=== PATIENT | female | born 1955 | race Caucasian/White ===

== ENCOUNTER 2016-12-05 16:22 | Observation (INO) | payer OTHER ==
[2016-12-05 16:33] VITALS: BMI 33.2
--- NOTE | 2016-12-05 17:01 | ED PDOC ---
Arrival/HPI - General Chief Complaint: Shortness Of Breath Time Seen by Provider: 12/05/16 16:41 Historian: Patient, Family, Certified Pharmacy Technician - History of Present Illness Narrative History of Present Illness (Text): 12/05/16 16:59 Patient is a 61 yo female past medical history of diabetes presents to ED stating that she has had chest pain and shortness of breath with exertion. Symptoms improve when she is resting. Denies pleuritic pain. Denies leg pain or swelling. Saw her PMD and was referred to licensed tax consultant although has not been able to see licensed tax consultant yet. Denies leg pain or swelling. Denies abdominal pain. Denies bloody urine or stool. No numbness or tingling or weakness. No hemoptysis or cough. No fevers. Past Medical History - Infectious Disease Hx of Infectious Diseases: None - Cardiac Hx Cardiac Disorders: Yes Hx Hypertension: Yes - Pulmonary Hx Respiratory Disorders: No - Neurological Hx Neurological Disorder: No - HEENT Hx HEENT Disorder: No - Renal Hx Renal Disorder: No - Endocrine/Metabolic Hx Endocrine Disorders: Yes Hx Diabetes Mellitus Type 2: Yes - Hematological/Oncological Hx Blood Disorders: Yes Hx Hepatitis C: Yes - Integumentary Hx Dermatological Disorder: No - Musculoskeletal/Rheumatological Hx Musculoskeletal Disorders: No - Gastrointestinal Hx Gastrointestinal Disorders: No - Genitourinary/Gynecological Hx Genitourinary Disorders: No - Psychiatric Hx Anxiety: No Hx Substance Use: No - Past Surgical History Past Surgical History: No Previous - Anesthesia Hx Anesthesia: No - Suicidal Assessment Feels Threatened In Home Enviroment: No Family/Social History Family/Social History: Unknown Family HX Smoking Status: Never Smoked Hx Alcohol Use: No Hx Substance Use: No Allergies/Home Meds Allergies/Adverse Reactions: Allergies No Known Allergies Allergy (Verified 12/05/16 16:43) Home Medications: Home Meds Medication Instructions Recorded Confirmed Metformin Hydrochloride [Metformin] 500 mg PO TID 04/25/13 12/05/16 Metoprolol Tartrate 25 mg PO BID 04/25/13 12/05/16 Simvastatin 20 mg PO HS 04/26/13 12/05/16 Alogliptin Benzoate [Alogliptin] 12.5 mg PO DAILY 12/05/16 12/05/16 Bisacodyl [Correctol] 1 tab PO DAILY 12/05/16 12/05/16 Cholecalciferol [Vitamin D 1000 IU] 1,000 iu PO DAILY 12/05/16 12/05/16 Famotidine [Pepcid] 20 mg PO DAILY 12/05/16 12/05/16 Fenofibrate [Tricor] 54 mg PO DAILY 12/05/16 12/05/16 Review of Systems - Review of Systems Constitutional: Fatigue. absent: Fevers Eyes: absent: Vision Changes ENT: absent: Hearing Changes Respiratory: SOB. absent: Cough Cardiovascular: Chest Pain, AFN. absent: Palpitations, Edema, Calf Pain Gastrointestinal: absent: Abdominal Pain, Nausea, Vomiting Genitourinary Female: Dysuria, Frequency. absent: Hematuria, Urine Output Changes, Vaginal Bleeding, Vaginal Discharge Musculoskeletal: absent: Back Pain Skin: absent: Rash Neurological: absent: Headache, Dizziness, Focal Weakness Hemo/Lymphatic: absent: Easy Bleeding Physical Exam Vital Signs Reviewed: Yes Vital Signs Temp Pulse Resp BP Pulse Ox 12/05/16 18:22 66 18 126/86 99 12/05/16 16:46 18 100 12/05/16 16:32 98.4 F 68 18 128/91 H 99 Temperature: Afebrile Appearance: Positive for: Well-Appearing, Non-Toxic Pain Distress: Mild Mental Status: Positive for: Alert and Oriented X 3 - Systems Exam Head: Present: Atraumatic, Normocephalic Pupils: Present: PERRL Extroacular Muscles: Present: EOMI Mouth: Present: Moist Mucous Membranes Pharnyx: No: ERYTHEMA Nose (Internal): Present: Normal Inspection Neck: Present: Normal Range of Motion. No: Meningeal Signs Respiratory/Chest: Present: Clear to Auscultation. No: Respiratory Distress Cardiovascular: Present: Regular Rate and Rhythm, Murmurs Abdomen: No: Tenderness, Distention Back: No: CVA Tenderness Upper Extremity: No: Cyanosis Lower Extremity: No: Edema, CALF TENDERNESS Neurological: Present: Motor Func Grossly Intact, Normal Sensory Function Skin: Present: Warm Psychiatric: Present: Alert, Normal Insight, Normal Concentration Medical Decision Making ED Course and Treatment: 12/05/16 18:56 Patient presents with daughter who assists with translation. Patient is diabetic with chest pain and sob with exertion for several weeks. On initial exam, no chest pain at rest. Initial EKG and card isos unremarkable. Last stress test "three years ago" and given risk factors with sxs of chest pain with exertion, will admit to telemetry observation, admission accepted by Dr. Crump, her PMD. Currently remains pain free. UTI noted. Patient initiated on abx. No abdominal pain or flank pain noted. Afebrile, nontoxic appearing. Treatment plan d/w patient and family. - Lab Interpretations Lab Results: 12/05/16 16:59 12/05/16 16:59 Lab Results 12/05/16 17:10: Urine Color Yellow, Urine Appearance Sl cloudy, Urine pH 7.0, Ur Specific [place] 1.010, Urine Protein Negative, Urine Glucose (UA) Negative, Urine Ketones Negative, Urine Blood Negative, Urine Nitrate Negative, Urine Bilirubin Negative, Urine Urobilinogen 0.2, Ur Leukocyte Esterase Large H, Urine RBC 0 - 2, Urine WBC 5 - 10, Ur Epithelial Cells 1 - 3, Urine Bacteria Many 12/05/16 17:05: POC Glucose (mg/dL) 113 H 12/05/16 16:59: Sodium 139, Potassium 3.9, Chloride 103, Carbon Dioxide 25, Anion Gap 15, BUN 15, Creatinine 0.6 L, Est GFR ( Amer) > 60, Est GFR ( Non-Af Amer) > 60, Random Glucose 106, Calcium 9.6, Total Bilirubin 0.3, AST 26 , ALT 28, Alkaline Phosphatase 50, Lactate Dehydrogenase 371, Total Creatine Kinase 58, Troponin I < 0.01, NT-Pro-B Natriuret Pep 98.3, Total Protein 7.9, Albumin 4.2, Globulin 3.7, Albumin/Globulin Ratio 1.1 12/05/16 16:59: PT 11.1, INR 1.03, APTT 26.4 12/05/16 16:59: WBC 6.0, RBC 4.85, Hgb 11.7 L, Hct 36.4, MCV 75.1 L, MCH 24.1 L , MCHC 32.1, RDW 14.6 H, Plt Count 269, MPV 8.5, Gran % 41.5 L, Lymph % (Auto) 45.9 H, [place] % (Auto) 9.9 H, Eos % (Auto) 2.2, Baso % (Auto) 0.5, Gran # 2.48, Lymph # 2.7, [place] # 0.6, Eos # 0.1, Baso # 0.03 - RAD Interpretation Radiology Orders: 12/05/16 16:57 CHEST PORTABLE [RAD] Stat - EKG Interpretation EKG Interpretation (Text): EKG at 16:30 normal sinus rhythm rate of 68 cannot rule out anterior infarct age undetermined Interpreted by ED Physician: Yes Type: 12 lead EKG - Medication Orders Current Medication Orders: Discontinued Medications Aspirin (Aspirin Chewable) 81 mg PO STAT STA Stop: 12/05/16 17:51 Last Admin: 12/05/16 18:05 Dose: 81 mg Nitrofurantoin Macrocrystals (Macrobid) 100 mg PO STAT STA Stop: 12/05/16 17:52 Last Admin: 12/05/16 18:04 Dose: 100 mg Disposition/Present on Arrival - Present on Arrival Any Indicators Present on Arrival: No History of DVT/PE: No History of Uncontrolled Diabetes: No Urinary Catheter: No History of Decub. Ulcer: No History Surgical Site Infection Following: None - Disposition Have Diagnosis and Disposition been Completed?: Yes Diagnosis: Chest pain, UTI (urinary tract infection) Disposition: HOSPITALIZED Disposition Time: 17:53 Patient Plan: Observation, Telemetry Patient Problems: Current Active Problems Problem Status Onset Chest pain Acute UTI (urinary tract infection) Acute Condition: FAIR
[2016-12-05 17:20] LABS: BASO # 0.03 K/mm3 (0.0-2.0); BASO % 0.5 % (0.0-3.0); EOS # 0.1 (0.0-0.7); EOS % 2.2 % (1.5-5.0); GRAN # 2.48 (1.4-6.5); GRAN % 41.5 % (50.0-68.0); HEMATOCRIT 36.4 % (36.0-48.0); LYMPH # 2.7 (1.2-3.4); LYMPH % 45.9 % (22.0-35.0); MEAN CELL VOLUME 75.1 fl (80.0-105.0); MEAN CORPUSCULAR HEMOGLOBIN 24.1 pg (25.0-35.0); MEAN CORPUSCULAR HGB CONC 32.1 g/dl (31.0-37.0); MEAN PLATELET VOLUME 8.5 fl (7.0-11.0); MONO # 0.6 (0.1-0.6); MONO % 9.9 % (1.0-6.0); RED CELL DISTRIBUTION WIDTH 14.6 % (11.5-14.5)
[2016-12-05 17:27] LABS: URINE BILIRUBIN NEGATIVE (NEGATIVE); URINE BLOOD NEGATIVE (NEGATIVE); URINE GLUCOSE (UA) NEGATIVE (NEGATIVE); URINE KETONE NEGATIVE (NEGATIVE); URINE LEUKOCYTE ESTERASE LARGE Leu/uL (NEGATIVE); URINE PROTEIN NEGATIVE mg/dL (<30 mg/dL); URINE UROBILINOGEN 0.2 E.U./dL (<1 E.U./dL)
[2016-12-05 17:28] LABS: ALB/GLOB RATIO 1.1 (1.1-1.8); ALKALINE PHOSPHATASE 50 U/L (38-126); ALT/SGPT 28 U/L (7-56); AST/SGOT 26 U/L (14-36); BILIRUBIN,TOTAL 0.3 mg/dL (0.2-1.3); BLOOD UREA NITROGEN 15 mg/dL (7-21); CALCIUM 9.6 mg/dL (8.4-10.5); CARBON DIOXIDE 25 mmol/L (21-33); CHLORIDE 103 mmol/L (98-107); GFR AFRICAN-AMERICAN > 60; GLUCOSE,RANDOM 106 mg/dL (70-110); POTASSIUM 3.9 mmol/L (3.6-5.0); SODIUM 139 mmol/L (132-148); TOTAL PROTEIN 7.9 g/dL (5.8-8.3)
[2016-12-05 17:32] LABS: INR 1.03 (0.93-1.08); PARTIAL THROMBOPLASTIN TIME 26.4 Seconds (23.7-30.8)
[2016-12-05 17:34] LABS: URINE APPEARANCE SL CLOUDY (CLEAR); URINE COLOR YELLOW (YELLOW)
[2016-12-05 17:38] LABS: URINE BACTERIA MANY (NEG); URINE RBC 0 - 2 /hpf (0-2)
[2016-12-05 17:41] LABS: TROPONIN I < 0.01 ng/mL
--- NOTE | 2016-12-05 18:06 | RAD ---
HISTORY: Shortness of breath. Technique: Single view portable semi erect @ 17:45. COMPARISON: 11/12/2015 FINDINGS: LUNGS: No active pulmonary disease. PLEURA: No significant pleural effusion identified, no pneumothorax apparent. CARDIOVASCULAR: No radiographic findings to suggest acute or significant cardiovascular disease. OSSEOUS STRUCTURES: No significant abnormalities. VISUALIZED UPPER ABDOMEN: Normal. OTHER FINDINGS: None. IMPRESSION: No active disease. No significant interval change compared to the prior examination(s). Please note: No preliminary report/ innterpretation of this examination provided by emergency department personnel.
[2016-12-06 07:00] VITALS: O2SAT 100
[2016-12-06 08:27] LABS: CHOLESTEROL 161 mg/dL (130-200)
[2016-12-06] MEDS ORDERED: Aminophylline 25 mg/ml Inj ONE (10:09)
--- NOTE | 2016-12-06 11:05 | CARD ---
APPROVED REPORT EKG Measurement Heart [id number] <Conclusion> Normal sinus rhythm Poor R Progression V1-V3.
--- NOTE | 2016-12-06 12:32 | CT ---
PROCEDURE: CT HEAD WITHOUT CONTRAST. HISTORY: hit head COMPARISON: None available. TECHNIQUE: Axial computed tomography images were obtained through the head/brain without intravenous contrast. Radiation dose: Total exam DLP = 823 mGy-cm. This CT exam was performed using one or more of the following dose reduction techniques: Automated exposure control, adjustment of the mA and/or kV according to patient size, and/or use of iterative reconstruction technique. FINDINGS: HEMORRHAGE: No intracranial hemorrhage. BRAIN: No mass effect or edema. No atrophy or chronic microvascular ischemic changes. VENTRICLES: Unremarkable. No hydrocephalus. CALVARIUM: Unremarkable. PARANASAL SINUSES: Unremarkable as visualized. No significant inflammatory changes. MASTOID AIR CELLS: Unremarkable as visualized. No inflammatory changes. OTHER FINDINGS: None. IMPRESSION: No acute findings
[2016-12-06] MEDS ORDERED: Sodium Chloride 0.9% 500 ML IV STA (13:12)
[2016-12-06 13:14] LABS: BLOOD UREA NITROGEN 14 mg/dL (7-21); CALCIUM 9.3 mg/dL (8.4-10.5); CARBON DIOXIDE 26 mmol/L (21-33); CHLORIDE 105 mmol/L (98-107); GFR AFRICAN-AMERICAN > 60; GLUCOSE,RANDOM 135 mg/dL (70-110); MAGNESIUM 1.7 mg/dL (1.7-2.2); PHOSPHOROUS 3.5 mg/dL (2.5-4.5); POTASSIUM 4.6 mmol/L (3.6-5.0); SODIUM 140 mmol/L (132-148)
[2016-12-06] MEDS ORDERED: cefTRIAXone 1 gm 1 GM/100 ML BAG IVPB SCH (13:15)
[2016-12-06 13:26] LABS: TROPONIN I < 0.01 ng/mL
--- NOTE | 2016-12-06 13:47 | PCM.RRT ---
<Philippe Perez - Last Filed: 12/06/16 13:47> REELER OPERATOR Nurse Assessment - Situation Date: 12/06/16 Time REELER OPERATOR was called: 11:59 REELER OPERATOR Responder Arrival Time: 12:00 REELER OPERATOR Location:: cardiology REELER OPERATOR Reason for Call: Not Responding to Urgent Treatment REELER OPERATOR Called By: Other Disciplines - IV IV Inserted during REELER OPERATOR?: No IV Fluids Initiated During REELER OPERATOR?: 0.9 NS 500cc - Respiratory Oxygen Delivery Method: Room Air - Diagnostic Test Ordered EKG: Yes CT Scan: Yes (head) - Stat Labs Ordered REELER OPERATOR Other Labs Ordered: FSBS-180 CPR started during REELER OPERATOR?: No - Vital Signs Vital Sign: Rapid Response Vital Sign Blood Pressure 102/62 - Finger Stick Blood Glucose Finger Stick Blood Glucose: 180 - Time REELER OPERATOR Ended Time REELER OPERATOR Ended: 12:30 - Vital Signs at end of REELER OPERATOR Vital Signs at end of REELER OPERATOR: Rapid Response End Vital Sign Blood Pressure 114/76 - Recommendations Notifications: Consultations I.Reason for REELER OPERATOR - A) Acute Change in Patient: Subjective: This is a 61 year old female with a past medical history of hypertension and type 2 diabetes who came into the emergency department complaining of chest pain and shortness of breath. The patient was sent for a nuclear stress test as a result. While sitting in the chair the patient became acutely dizzy and fell forward hitting the side of her face and a rapid response was called as a a result. The patients neck was stabilized and I ordered stat EKG, bmp, magnesium phosphorous, and Head CT. The patient was transferred back to the emergency department for further workup. - Respiratory Oxygen Delivery Method: Room Air - Head Head Exam: ATRAUMATIC, NORMAL INSPECTION, NORMOCEPHALIC - Eyes Eye Exam: EOMI, Normal appearance, PERRL. absent: Periorbital tenderness - Respiratory Exam Respiratory Exam: Clear to Ausculation Bilateral, NORMAL BREATHING PATTERN. absent: Chest Wall Tenderness, Prolonged Expiratory Phase, Respiratory Distress - Cardiovascular Exam Cardiovascular Exam: REGULAR RHYTHM, RRR, +S1, +S2. absent: Gallop, Rubs - GI/Abdominal Exam GI & Abdominal Exam: Soft, Normal Bowel Sounds. absent: Rigid, Tenderness, Hyperactive Bowel Sounds - Neurological Exam Neurological Exam: Alert, Awake, CN II-XII Intact, Normal Gait, Oriented x3 - Extremities Exam Extremities Exam: Full ROM, Normal Capillary Refill, Normal Inspection. absent : Calf Tenderness, Joint Swelling, Pedal Edema, Tenderness Plan - Assessment of Findings&Treatment Plan F/u on head CT, EKG, magnesium, phosphorous, cardiac enzymes and BMP. Dr. Crump the PMD was made aware of the incident via voicemail. Dr. Lee the Wireless Retail Manager was made aware of the incident. 500 ml Fluid bolus was given. Blood pressure stable. No tachycardia or bradycardia present. <Verna Maciel - Last Filed: 12/07/16 16:37> REELER OPERATOR Nurse Assessment - Vital Signs Vital Sign: Rapid Response Vital Sign Blood Pressure 102/62 - Vital Signs at end of REELER OPERATOR Vital Signs at end of REELER OPERATOR: Rapid Response End Vital Sign Blood Pressure 114/76 Attending/Attestation - Attestation I have personally seen and examined this patient.: Yes I have fully participated in the care of the patient.: Yes I have reviewed all pertinent clinical information, including history, physical exam and plan: Yes
--- NOTE | 2016-12-06 16:12 | HP ---
DATE: 12/05/2016. REASON FOR ADMISSION: The patient is a 61-year-old female, came into the hospital because of chest discomfort and dyspnea with exertion. HISTORY OF PRESENT ILLNESS: This is a 61-year-old female with chronic hep C, treated recently; diabetic, on pills. She has been complaining of chest discomfort that seems to be getting worse over the last few days associated with right-sided chest pain, it happen only with exertion. The patient got to the hospital with above complaint and seems like getting more frequent and more persistent. She denies any nausea, vomiting, any palpitations or any dizziness. PAST MEDICAL HISTORY: As I mentioned, chronic hep C, treated recently; hypercholesterolemia; hypertriglyceridemia and obesity. ALLERGIES: SHE HAS NO KNOWN ALLERGIES. SOCIAL HISTORY: Does not smoke or drink. She lives by herself, have kids supports to her. FAMILY HISTORY: Noncontributory. REVIEW OF SYSTEMS: She does complaint of dyspnea, which recently worse, arthritis of both knees, back pain, chronic disc disease, otherwise stable. PHYSICAL EXAMINATION: GENERAL: The patient is alert, awake and oriented x3. No distress VITAL SIGNS: As follows: Temperature 98.3, heart rate 70, blood pressure 129/64, respirations 20, and sat 100%. HEAD AND NECK: Normal. No JVD. No thyromegaly. CHEST: Clear with good air entry. CARDIAC: First sound and second sound normal. ABDOMEN: Soft, obese and nontender. EXTREMITIES: No edema. NEUROLOGIC: Normal. LABORATORY DATA: White count 6, hemoglobin 11.7, hematocrit 36.4, and platelets 269. Sodium 139, potassium 3.9, chloride 103, bicarbonate 25, BUN 15, creatinine 0.6. Liver function test is normal. Troponin is negative and albumin and globulin normal. Triglycerides 125, LDL 98, that was done. EKG AND CHEST X-RAY: Chest x-ray shows no active pulmonary disease, and EKG was reported no significant ST elevation. IMPRESSION AND PLAN: A 61-year-old diabetic female came in with chest discomfort, it is more with exertions. We admitted the patient for angina equivalent, coronary artery disease. She should be evaluated with cardiology for cardiac angina equivalent. We admitted the patient with chest pain, cardiology consult, Dr. Lee. Resume her meds. I will give her an aspirin if she is going to get, and we will get her alogliptin. Diabetes and hypertriglyceridemia. We will resume all her meds. Continue current treatment. Resume beta cale, metoprolol 25 mg b.i.d. and simvastatin 20 at bedtime. Caden Crump MD
[2016-12-06 18:14] VITALS: BP 116/65; RESP 20; TEMP 97.5
--- NOTE | 2016-12-06 18:20 | CARD ---
APPROVED REPORT Protocol: LEXISCAN Test Type: Lexiscan Sestamibi Stress Test Attending Physician: Dr. Clarence Vincent Referring Physician: Dr. Caden Crump Test Indications: Chest Pain Height:5 ft 0 in Weight:170lbs Medications: aspirin, macrobid Medical History: 61 year old female with a h/o diabetes and Hep-C Target HR: 159 bpm Resting ECG: RSR. Resting Heart Rate: 69 bpm Resting Blood Pressure: 128/70mmHg Submaximum (85%): 135 bpm PROCEDURE Pharmacologic stress testing was performed using 0.4mg per 5ml of regadenoson given intravenously over 7-10 seconds. POST EXERCISE Reason for Termination: Protocol completed Target HR: No Max HR: 80 bpm 75% of Maximum Predicted HR: 159 bpm Exercise duration: 05:08 min:sec, 0 Stage Exercise capacity: 1.0METs Max Blood Pressure: 136/82mmHg Blood Pressure response to exercise: normal resting BP - appropriate response Heart Rate response to exercise: appropriate Chest Pain: No, none Angina index: 0 Arrhythmia: No, none ST Change: Yes, Less than 1mm Upsloping type ST Segment Depression 2, 3,avf,v Deviation: 0 mm TEST SUMMARY [id number]/70.0. INFUSIONDOSE 101:000.00.01.0117/.0. INFUSIONDOSE 201:000.00.01.0100/.0. INFUSIONDOSE 301:[id number]/82.0. INFUSIONDOSE 401:000.00.01.083/.0. INFUSIONDOSE 501:000.00.01.078/.0. INFUSIONDOSE 600:070.00.01.080/.0. INTERPRETATION Stress EKG Conclusion: IV LEXISCAN NUCLEAR STRESS TEST NEGATIVE FOR CHEST PAIN AND NEGATIVE FOR ANY SIGNIFICANT ST-T CHANGES. NUCLEAR SCAN REPORT PENDING Signed by Clarence Vincent Electronically Approved: 12/06/2016 10:54:12 EXAM: Myocardial Perfusion REST/STRESS Stress Test Type: Pharmacologic Imaging Protocol Rest Spect myocardial perfusion imaging was performed in supine position 60 minutes following the injection of 10.3 mCi of Tc-99 Myoview. At peak stress, the patient was injected intravenously with 30.8mCi of Tc-99 tetrofosmin after an infusion time of 0 minutes and 10 seconds. Gated Stress Spect was performed 65 minutes after intravenous Tc-99 Myoview injection. The images were gated to evaluate regional wall motion and calculate ventricular ejection fraction.Images were reconstructed using backfilter projection method in short horizontal and verticle long axis. Spect slices were generated. LV Perfusion The quality of the study is good. The left ventricle is normal in size. The right ventricle is unremarkable. The lung uptake is normal. The distribution of tracer reveals mildly and diffusely decreased perfusion involving anterior wall on the stress study. The remainder of the LV myocardium is unremarkable. The rest myocardial perfusion study shows no significant change. Wall Motion Wall motion study shows good contractility of the left ventricle. LVEF = 65%. Conclusion 1. Essentially normal SPECT myocardial perfusion study. 2. Fixed, anterior defect is most likely due to breast attenuation. 3. Normal gated wall motion of the left ventricle.
[2016-12-06 18:51] VITALS: PULSE 71
--- NOTE | 2016-12-06 19:10 | CARD ---
APPROVED REPORT EKG Measurement Heart [id number] [place] 166P58 [id number] <Conclusion> Normal sinus rhythm Normal ECG
--- NOTE | 2016-12-07 08:12 | CON ---
REASON FOR CONSULTATION: Follow up shortness of breath, rule out underlying coronary artery disease. HISTORY OF PRESENT ILLNESS: Briefly, this is a 61-year-old female with a past medical history of type 2 diabetes, hypertension, hyperlipidemia, came in with complaint of dyspnea on exertion. Denies any definite chest pain, but feels walk can get heaviness in the chest. Denies any history of documented coronary artery disease or angina in the past. Denies any PND or orthopnea. PAST MEDICAL HISTORY: Significant for diabetes and hypertension. SOCIAL HISTORY: Denies smoking. Denies any history of alcohol abuse. FAMILY HISTORY: Noncontributory. CURRENT MEDICATIONS: At home, the patient on simvastatin 20 mg, metoprolol 25 mg, metformin 500 mg, Tricor 54 mg, Pepcid 20 mg, vitamin D and alogliptin benzoate 12.5 mg b.i.d. PREVIOUS CARDIAC WORKUP: The patient had echocardiography done on 05/05/2013 that showed normal chamber size and function; trace aortic insufficiency, dated 05/05/2013. The patient had a stress test on 05/05/2013 that showed normal myocardial perfusion study. Ejection fraction 64%. REVIEW OF SYSTEMS: As per HPI. PHYSICAL EXAMINATION: As follows: VITAL SIGNS: Temperature afebrile, heart rate 69 and blood pressure 139/59. HEENT: PERRLA, intact. NECK: Supple. No carotid bruits and thyromegaly. CHEST: Clear to auscultation. HEART: S1 and S2, regular. ABDOMEN: Soft. EXTREMITIES: Clubbing and cyanosis negative. LABORATORY DATA: Blood workup as follows: WBC 6.0, hemoglobin , hematocrit 36.4 and platelet count 269. Chemistry showed sodium 139, potassium 3.9, chloride 103, carbon dioxide 25, anion gap of 15, BUN of 15 and creatinine 0.9. Troponin 0.01. EKG showed normal sinus, no acute ST-T changes noted. IMPRESSION: Dyspnea on exertion; some questionable history of chest pain on exertion, rule out underlying coronary artery disease; multiple risk factors for coronary artery disease including diabetes and hypertension, suggest echo and a stress test with lipid profile, TSH and hemoglobin A1c. Further recommendation after noninvasive workup. Thank you Dr. Crump for providing us the opportunity in taking care of the patient. We will follow with you. Clarence Lee MD
--- NOTE | 2016-12-07 14:59 | CARD ---
APPROVED REPORT EXAM: Two-dimensional and M-mode echocardiogram with Doppler and color Doppler. INDICATION Chest Pain 2D DIMENSIONS Left Atrium (2D)3.6 (1.6-4.0cm)IVSd0.7 (0.7-1.1cm) LVDd4.5 (3.9-5.9cm)PWd0.9 (0.7-1.1cm) LVDs3.0 (2.5-4.0cm)FS (%) 32.7 % LVEF (%)61.2 (>50%) M-Mode DIMENSIONS Aortic Root3.10 (2.2-3.7cm)Aortic Cusp Exc.1.70 (1.5-2.0cm) Aortic Valve AoV Peak Rbkzcjum329.0cm/Ashley Peak GR.8mmHg Mitral Valve MV E Loyhinlo79.0cm/sMV A Viyhzefv27.6cm/sE/A ratio1.1 TDI Lateral E' Peak V9.26cm/sMedial E' Peak V6.04cm/sE/Lateral E'8.1 E/Medial E'12.4 Pulmonary Valve PV Peak Okjqtbem73.7cm/sPV Peak Grad.2mmHg Tricuspid Valve TR Peak Cdjxiymp261cj/sRAP [id number] Peak Gr.27mmHg [id number] LEFT VENTRICLE The left ventricle is normal size. There is normal left ventricular wall thickness. The left ventricular function is normal.EF-55-60% There is normal LV segmental wall motion. The left ventricular diastolic function is normal. No left ventricle thrombus noted on this study. There is no ventricular septal defect visualized. There is no left ventricular aneurysm. There is no mass noted in the left ventricle. RIGHT VENTRICLE The right ventricle is normal size. There is normal right ventricular wall thickness. The right ventricular systolic function is normal. ATRIA The left atrium size is normal. The right atrium size is normal. The interatrial septum is intact with no evidence for an atrial septal defect. AORTIC VALVE The aortic valve is thickened but opens well. No aortic regurgitation is present. There is no aortic valvular stenosis. There is no aortic valvular vegetation. MITRAL VALVE The mitral valve is thickened but opens well. Mitral regurgitation is trace. There is no mitral valve stenosis. There is no evidence of mitral valve prolapse. TRICUSPID VALVE The tricuspid valve leaflets are thickened , but open well. There is trace tricuspid regurgitation.[id number]_37 mmof hg. There is no tricuspid valve stenosis. There is no tricuspid valve prolapse or vegetation. PULMONIC VALVE The pulmonary valve is normal in structure. GREAT VESSELS The aortic root is normal in size. The ascending aorta is normal in size. The pulmonary artery is normal. The IVC is normal in size and collapses >50% with inspiration. PERICARDIAL EFFUSION There is no pleural effusion. There is no pericardial effusion. <Conclusion> The left ventricle is normal size. There is normal left ventricular wall thickness. The left ventricular function is normal.EF-55-60% Mitral regurgitation is trace. There is trace tricuspid regurgitation.[id number]_37 mmof hg. The IVC is normal in size and collapses >50% with inspiration. There is no pericardial effusion. no vegetation or thrombus noted.
== END 2016-12-06 18:56 | disposition home or self-care (01) ==
LOC: ED 16:22 → ERH 17:50 → 2RNO 20:50
PROVIDERS: ADMIT Internal Medicine; ATTEND Internal Medicine
DX: R07.9 Chest pain, unspecified (principal); N39.0 Urinary tract infection, site not specified; I10 Essential (primary) hypertension; E11.9 Type 2 diabetes mellitus without complications; B18.2 Chronic viral hepatitis C; E78.2 Mixed hyperlipidemia; E66.9 Obesity, unspecified; Z68.34 Body mass index [BMI] 34.0-34.9, adult; Z79.84 Long term (current) use of oral hypoglycemic drugs
CPT/HCPCS: 36415; 70450; 71010; 78452; 80048; 80053; 80061; 81001; 82550; 82948; 83036; 83615; 83735; 83880; 84100; 84443; 84484; 85025; 85610; 85730; 87086; 93005; 93017; 93306; 99285; A9502; G0378; J0696

== ENCOUNTER 2016-12-13 18:14 | Emergency (ER) | payer OTHER ==
[2016-12-13 18:18] VITALS: BMI 31.3
[2016-12-13 18:47] VITALS: TEMP 97.8; O2SAT 99
[2016-12-13 18:52] LABS: BASO # 0.02 K/mm3 (0.0-2.0); BASO % 0.4 % (0.0-3.0); EOS # 0.2 (0.0-0.7); GRAN # 2.04 (1.4-6.5); GRAN % 36.1 % (50.0-68.0); LYMPH # 2.9 (1.2-3.4); LYMPH % 50.6 % (22.0-35.0); MEAN CELL VOLUME 74.6 fl (80.0-105.0); MEAN CORPUSCULAR HEMOGLOBIN 24.1 pg (25.0-35.0); MEAN CORPUSCULAR HGB CONC 32.3 g/dl (31.0-37.0); MEAN PLATELET VOLUME 8.2 fl (7.0-11.0); MONO # 0.6 (0.1-0.6); MONO % 9.9 % (1.0-6.0); RED CELL DISTRIBUTION WIDTH 14.4 % (11.5-14.5); WHITE BLOOD COUNT 5.7 10^3/ul (4.5-11.0)
[2016-12-13 19:02] LABS: INR 1.13 (0.93-1.08); PARTIAL THROMBOPLASTIN TIME 30.7 Seconds (25.1-36.5)
[2016-12-13 19:10] LABS: ALB/GLOB RATIO 1.2 (1.1-1.8); ALKALINE PHOSPHATASE 57 U/L (38-126); ALT/SGPT 34 U/L (7-56); AST/SGOT 30 U/L (14-36); BILIRUBIN,TOTAL 0.4 mg/dL (0.2-1.3); BLOOD UREA NITROGEN 16 mg/dL (7-21); CALCIUM 9.8 mg/dL (8.4-10.5); CARBON DIOXIDE 27 mmol/L (21-33); CHLORIDE 102 mmol/L (98-107); GFR AFRICAN-AMERICAN > 60; GLUCOSE,RANDOM 106 mg/dL (70-110); POTASSIUM 4.2 mmol/L (3.6-5.0); SODIUM 141 mmol/L (132-148); TOTAL PROTEIN 8.6 g/dL (5.8-8.3)
[2016-12-13 19:22] LABS: TROPONIN I < 0.01 ng/mL
[2016-12-13] MEDS ORDERED: Iohexol 350 MG/100 ML VIAL ONE (19:31)
--- NOTE | 2016-12-13 20:32 | ED PDOC ---
Arrival/HPI - General Chief Complaint: Shortness Of Breath Time Seen by Provider: 12/13/16 18:17 Historian: Patient - History of Present Illness Narrative History of Present Illness (Text): 12/13/16 20:22 61yo female with PMHx of Diabetes 2, hypertension and hypercholestremia who present with complaint of dyspnea and chest pain x months. She was seen here a week ago for same complain t. States she saw Doctor Theron today and was referred to ED for dyspnea evaluation. she denies cough, hemoptysis, LE edema, orthopnea, fever, chills, any other complaint. Past Medical History - Provider Review Nursing Documentation Reviewed: Yes - Infectious Disease Hx of Infectious Diseases: None - Cardiac Hx Cardiac Disorders: Yes Hx Hypertension: Yes - Pulmonary Hx Respiratory Disorders: No - Neurological Hx Neurological Disorder: No - HEENT Hx HEENT Disorder: No - Renal Hx Renal Disorder: No - Endocrine/Metabolic Hx Endocrine Disorders: Yes Hx Diabetes Mellitus Type 2: Yes - Hematological/Oncological Hx Blood Disorders: Yes Hx Hepatitis C: Yes - Integumentary Hx Dermatological Disorder: No - Musculoskeletal/Rheumatological Hx Musculoskeletal Disorders: No Hx Falls: No - Gastrointestinal Hx Gastrointestinal Disorders: No - Genitourinary/Gynecological Hx Genitourinary Disorders: No - Psychiatric Hx Psychophysiologic Disorder: No Hx Substance Use: No - Past Surgical History Past Surgical History: No Previous - Anesthesia Hx Anesthesia: No - Suicidal Assessment Feels Threatened In Home Enviroment: No Family/Social History - Physician Review Nursing Documentation Reviewed: Yes Family/Social History: Unknown Family HX Smoking Status: Never Smoked Hx Alcohol Use: No Hx Substance Use: No Allergies/Home Meds Allergies/Adverse Reactions: Allergies No Known Allergies Allergy (Verified 12/13/16 18:36) Home Medications: Home Meds Medication Instructions Recorded Confirmed Simvastatin 20 mg PO HS 04/26/13 12/13/16 Alogliptin Benzoate [Alogliptin] 12.5 mg PO DAILY 12/05/16 12/13/16 Bisacodyl [Correctol] 1 tab PO DAILY 12/05/16 12/13/16 Cholecalciferol [Vitamin D 1000 IU] 1,000 iu PO DAILY 12/05/16 12/13/16 Famotidine [Pepcid] 20 mg PO DAILY 12/05/16 12/13/16 Fenofibrate [Tricor] 54 mg PO DAILY 12/05/16 12/13/16 Metformin HCl [Glucophage] 500 mg PO TID 12/13/16 12/13/16 Metoprolol Tartrate 25 mg PO BID 12/13/16 12/13/16 Review of Systems - Physician Review All systems were reviewed & negative as marked: Yes - Review of Systems Constitutional: Normal Eyes: Normal ENT: Normal Respiratory: SOB Cardiovascular: Chest Pain Gastrointestinal: Normal Genitourinary Female: Normal Musculoskeletal: Normal Skin: Normal Neurological: Normal Endocrine: Normal Hemo/Lymphatic: Normal Psychiatric: Normal Physical Exam Vital Signs Reviewed: Yes Vital Signs Temp Pulse Resp BP Pulse Ox 12/13/16 20:42 88 18 126/71 99 12/13/16 18:36 19 99 12/13/16 18:31 97.8 F 95 H 19 111/82 99 Temperature: Afebrile Blood Pressure: Normal Pulse: Regular Respiratory Rate: Normal Appearance: Positive for: Well-Appearing, Non-Toxic, Comfortable Pain Distress: None Mental Status: Positive for: Alert and Oriented X 3 - Systems Exam Head: Present: Atraumatic, Normocephalic Pupils: Present: PERRL Extroacular Muscles: Present: EOMI Conjunctiva: Present: Normal Mouth: Present: Moist Mucous Membranes Neck: Present: Normal Range of Motion Respiratory/Chest: Present: Clear to Auscultation, Good Air Exchange. No: Respiratory Distress, Accessory Muscle Use, Wheezes, Decreased Breath Sounds, Rales, Retracting, Rhonchi, Tachypneic Cardiovascular: Present: Regular Rate and Rhythm, Normal S1, S2. No: Murmurs Abdomen: Present: Normal Bowel Sounds. No: Tenderness, Distention, Peritoneal Signs Back: Present: Normal Inspection Upper Extremity: Present: Normal Inspection. No: Cyanosis, Edema Lower Extremity: Present: Normal Inspection. No: Edema Neurological: Present: GCS=15, CN II-XII Intact, Speech Normal Skin: Present: Warm, Dry, Normal Color. No: Rashes Psychiatric: Present: Alert, Oriented x 3, Normal Insight, Normal Concentration Medical Decision Making ED Course and Treatment: 12/13/16 22:53 61yo female in ED for dyspnea. she was referred to ED by her PMD for further evaluation of dyspnea Pt had a stress test and Echo a week ago that was both negative. She was comfortable in ED. Lab was WNL EKG NSR @77bpm no ST changes Chest CT - Negative. Result was ORIANA Crump. He requested that pt DC home to f/u with him net week. Result was DW both patient and the son. she was advised to f/u with Dr. Crump. TRT ED for any new or worsening symptoms. - Lab Interpretations Lab Results: 12/13/16 18:45 12/13/16 18:45 Lab Results 12/13/16 18:45: Sodium 141, Potassium 4.2, Chloride 102, Carbon Dioxide 27, Anion Gap 16, BUN 16, Creatinine 0.7, Est GFR ( Amer) > 60, Est GFR (Non- Af Amer) > 60, Random Glucose 106, Calcium 9.8, Total Bilirubin 0.4, AST 30, ALT 34, Alkaline Phosphatase 57, Lactate Dehydrogenase 397, Total Creatine Kinase 73, Troponin I < 0.01, NT-Pro-B Natriuret Pep 51.7, Total Protein 8.6 H, Albumin 4.6, Globulin 4.0, Albumin/Globulin Ratio 1.2 12/13/16 18:45: PT 12.3, INR 1.13 H, APTT 30.7 12/13/16 18:45: WBC 5.7 D, RBC 5.23, Hgb 12.6, Hct 39.0, MCV 74.6 L, MCH 24.1 L , MCHC 32.3, RDW 14.4, Plt Count 325, MPV 8.2, Gran % 36.1 L, Lymph % (Auto) 50.6 H, [place] % (Auto) 9.9 H, Eos % (Auto) 3.0, Baso % (Auto) 0.4, Gran # 2.04, Lymph # 2.9, [place] # 0.6, Eos # 0.2, Baso # 0.02 - RAD Interpretation Radiology Orders: 12/13/16 18:33 ANGIO CHEST PE PROTOCOL [CT] Stat Disposition/Present on Arrival - Present on Arrival Any Indicators Present on Arrival: No History of DVT/PE: No History of Uncontrolled Diabetes: No Urinary Catheter: No History of Decub. Ulcer: No History Surgical Site Infection Following: None - Disposition Have Diagnosis and Disposition been Completed?: Yes Diagnosis: Dyspnea Disposition: HOME/ ROUTINE Disposition Time: 22:20 Patient Plan: Discharge Condition: STABLE Discharge Instructions (ExitCare): Dyspnea (ED) Additional Instructions: Follow up with your Doctor next week Return to ED for any new or worsening symptoms Referrals: Caden Crump MD [Primary Care Provider] - Follow up with primary Forms: [employer] (Hungarian)
[2016-12-13 20:43] VITALS: BP 126/71; PULSE 88; RESP 18
--- NOTE | 2016-12-13 21:43 | CT ---
EXAM: CT Angiography Chest With Intravenous Contrast EXAM DATE/TIME: 12/13/2016 6:33 PM CLINICAL HISTORY: 61 years old, female; Signs and symptoms; Dyspnea TECHNIQUE: Axial computed tomographic angiography images of the chest with intravenous contrast using pulmonary embolism protocol. All CT scans at this facility use one or more dose reduction techniques, viz.: automated exposure control; ma/kV adjustment per patient size (including targeted exams where dose is matched to indication; i.e. head); or iterative reconstruction technique. MIP reconstructed images were created and reviewed. Coronal and sagittal reformatted images were created and reviewed. CONTRAST: 95 mL of OMNI 350 administered intravenously. COMPARISON: DX - CHEST PORTABLE 2016-12-05 17:44 FINDINGS: Artifacts: Motion artifact degrades image quality.Streak artifact degrades image quality. Heart, aorta and Pulmonary arteries: Heart size is normal. There is fluid in the pericardial recesses. There is no aneurysm or dissection.There are vascular calcifications. There is perfusion of the 3 arch vessels. There is common origin of the right innominate and left common carotid artery. There are no pulmonary emboli. Lungs and pleural spaces: Trachea and main bronchi are patent. There is no lobar or segmental consolidation. There is dependent atelectasis bilaterally. There are no effusions. Mediastinum: Esophagus is unremarkable. There is a small hiatal hernia. There are no pathologically enlarged mediastinal or hilar nodes. Thyroid: Thyroid is unremarkable Bones/joints: There are degenerative changes in the osseus structures. Soft tissues: unremarkable Upper abdomen: There are no acute abnormalities in the visualized portion of the abdomen. Gallbladder is partially distended with a small stone. There is bilateral adrenal thickening with nodularity IMPRESSION: No aneurysm, dissection or pulmonary embolus, no focal pneumonia; gallstone
--- NOTE | 2016-12-14 21:06 | CARD ---
APPROVED REPORT EKG Measurement Heart [id number] <Conclusion> Normal sinus rhythm Normal ECG
== END 2016-12-13 22:31 | disposition home or self-care (01) ==
LOC: ED 18:14
DX: R06.00 Dyspnea, unspecified (principal); E11.9 Type 2 diabetes mellitus without complications; I10 Essential (primary) hypertension
CPT/HCPCS: 71275; 80053; 82550; 83615; 83880; 84484; 85025; 85610; 85730; 93005; 99284; Q9967

== ENCOUNTER 2017-09-13 19:08 | Observation (INO) | payer OTHER ==
[2017-09-13 19:50] LABS: HEMOGLOBIN 11.3 g/dL (12.0-16.0); MEAN CELL VOLUME 72.8 fl (80.0-105.0); MEAN CORPUSCULAR HEMOGLOBIN 23.3 pg (25.0-35.0); MEAN PLATELET VOLUME 8.5 fl (7.0-11.0); RBC 4.85 10^6/uL (3.5-6.1); RED CELL DISTRIBUTION WIDTH 15.2 % (11.5-14.5); WHITE BLOOD COUNT 6.7 10^3/ul (4.5-11.0)
[2017-09-13 20:00] LABS: ALB/GLOB RATIO 1.2 (1.1-1.8); ALBUMIN 4.4 g/dL (3.0-4.8); ALT/SGPT 32 U/L (7-56); AST/SGOT 30 U/L (14-36); BLOOD UREA NITROGEN 16 mg/dL (7-21); GFR AFRICAN-AMERICAN > 60; GFR NON-AFRICAN AMERICAN > 60
[2017-09-13 20:01] LABS: INR 0.98 (0.93-1.08); PARTIAL THROMBOPLASTIN TIME 29.9 Seconds (25.1-36.5); PROTHROMBIN TIME 11.2 SECONDS (9.4-12.5)
[2017-09-13 20:11] LABS: TROPONIN I < 0.01 ng/mL
--- NOTE | 2017-09-13 20:11 | ED PDOC ---
Arrival/HPI - General Chief Complaint: Chest Pain Time Seen by Provider: 09/13/17 19:22 Historian: Patient - History of Present Illness Narrative History of Present Illness (Text): 09/13/17 19:36 61 year old male, with past medical history of hypertension, diabetes mellitus, hyperlipidemia, and Hepatitis C, presents to the Emergency department complaining of intermittent chest pain since earlier this morning. Patient informs localized right sided chest pain intermittently radiating to her back since onset. Patient denies any associated palpitation or shortness of breath. Patient denies any fever, chills, nausea, vomiting, diarrhea, abdominal pain, bilateral leg discomfort or any other complaints. Patient presents to the Emergency department for medical evaluation. Time/Duration: 4-6 hours Symptom Onset: Gradual Symptom Course: Unchanged Quality: Aching Activities at Onset: Light Context: Home Past Medical History - Provider Review Nursing Documentation Reviewed: Yes - Infectious Disease Hx of Infectious Diseases: None - Cardiac Hx Cardiac Disorders: Yes Hx Hypertension: Yes - Pulmonary Hx Respiratory Disorders: No - Neurological Hx Neurological Disorder: No - HEENT Hx HEENT Disorder: No - Renal Hx Renal Disorder: No - Endocrine/Metabolic Hx Endocrine Disorders: Yes Hx Diabetes Mellitus Type 2: Yes - Hematological/Oncological Hx Blood Disorders: Yes Hx Hepatitis C: Yes - Integumentary Hx Dermatological Disorder: No - Musculoskeletal/Rheumatological Hx Musculoskeletal Disorders: No Hx Falls: No - Gastrointestinal Hx Gastrointestinal Disorders: No - Genitourinary/Gynecological Hx Genitourinary Disorders: No - Psychiatric Hx Psychophysiologic Disorder: No Hx Substance Use: No - Past Surgical History Past Surgical History: No Previous - Anesthesia Hx Anesthesia: No - Suicidal Assessment Feels Threatened In Home Enviroment: No Family/Social History - Physician Review Nursing Documentation Reviewed: Yes Family/Social History: No Known Family HX Smoking Status: Never Smoked Hx Alcohol Use: No Hx Substance Use: No Allergies/Home Meds Allergies/Adverse Reactions: Allergies No Known Allergies Allergy (Verified 09/13/17 19:26) Home Medications: Home Meds Medication Instructions Recorded Confirmed Unobtainable 09/13/17 09/13/17 Review of Systems - Physician Review All systems were reviewed & negative as marked: Yes - Review of Systems Constitutional: absent: Fevers Respiratory: absent: SOB Cardiovascular: Chest Pain. absent: Palpitations Gastrointestinal: absent: Abdominal Pain, Diarrhea, Nausea, Vomiting Physical Exam Vital Signs Reviewed: Yes Vital Signs Temp Pulse Resp BP Pulse Ox 09/13/17 19:28 98.0 F 68 18 134/73 99 Temperature: Afebrile Blood Pressure: Normal Pulse: Regular Respiratory Rate: Normal Appearance: Positive for: Well-Appearing, Non-Toxic, Comfortable Pain Distress: None Mental Status: Positive for: Alert and Oriented X 3 - Systems Exam Head: Present: Atraumatic, Normocephalic Pupils: Present: PERRL Extroacular Muscles: Present: EOMI Conjunctiva: Present: Normal Respiratory/Chest: Present: Clear to Auscultation, Good Air Exchange, Other (No palpable chest wall tenderness). No: Respiratory Distress, Accessory Muscle Use Cardiovascular: Present: Regular Rate and Rhythm, Normal S1, S2. No: Murmurs Abdomen: No: Tenderness, Distention, Peritoneal Signs Back: Present: Normal Inspection Upper Extremity: Present: Normal Inspection. No: Cyanosis, Edema Lower Extremity: Present: Normal Inspection. No: Edema Neurological: Present: GCS=15, CN II-XII Intact, Speech Normal Skin: Present: Warm, Dry, Normal Color. No: Rashes Psychiatric: Present: Alert, Oriented x 3, Normal Insight, Normal Concentration Medical Decision Making ED Course and Treatment: 09/13/17 19:36 Impression: 61 year old female presents to the Emergency department for intermittent chest pain. Plan: -- EKG -- Labs -- Chest X-ray -- Aspirin -- Reassess and disposition Prior Visits: Notes and results from previous visits were reviewed. Progress Notes: 09/13/17 19:25 EKG: Ordered, reviewed, and independently interpreted the EKG. Rate : 75 BPM Rhythm : NSR Interpretation : No ST-segment elevations or depressions, no T-wave inversions, normal intervals. 09/13/17 22:13 Chest X-ray reviewed, shows no acute processes. 09/13/17 22:[address] Crump, who requests pt go to hospitalist service. 09/13/17 22:27 Case discussed with hospital medical assistant longitudinal float operator, who is aware and agrees with plan. 09/13/17 22:[address] Walters, who is aware and agrees with plan. Accepts pt in to hospitalist service. Pt will go to Telemetry observation for chest pain. - Lab Interpretations Lab Results: 09/13/17 19:28 07/19/18 19:28 Lab Results 09/13/17 19:28: WBC 6.7 D, RBC 4.85, Hgb 11.3 L, Hct 35.3 L, MCV 72.8 L D, MCH 23.3 L, MCHC 32.0, RDW 15.2 H, Plt Count 317, MPV 8.5 09/13/17 19:28: Sodium 142, Potassium 3.9, Chloride 101, Carbon Dioxide 29, Anion Gap 16, BUN 16, Creatinine 0.8, Est GFR ( Amer) > 60, Est GFR (Non- Af Amer) > 60, Random Glucose 99, Calcium 10.0, Total Bilirubin 0.3, AST 30, ALT 32, Alkaline Phosphatase 58, Lactate Dehydrogenase 388, Total Creatine Kinase 47, Troponin I < 0.01, Total Protein 8.3, Albumin 4.4, Globulin 3.9, Albumin/Globulin Ratio 1.2 09/13/17 19:28: PT 11.2, INR 0.98, APTT 29.9 I have reviewed the lab results: Yes - RAD Interpretation Radiology Orders: 09/13/17 19:37 CHEST PORTABLE [RAD] Stat Histopathology Technician: ED Physician - EKG Interpretation Interpreted by ED Physician: Yes Type: 12 lead EKG - Medication Orders Current Medication Orders: Discontinued Medications Aspirin (Aspirin) 325 mg PO ONCE STA Stop: 09/13/17 19:39 Last Admin: 09/13/17 19:38 Dose: 325 mg - [place] Statement The provider has reviewed the documentation as recorded by the Marni Sarmiento. All medical record entries made by the Marni were at my direction and personally dictated by me. I have reviewed the chart and agree that the record accurately reflects my personal performance of the history, physical exam, medical decision making, and the department course for this patient. I have also personally directed, reviewed, and agree with the discharge instructions and disposition. Disposition/Present on Arrival - Present on Arrival Any Indicators Present on Arrival: No History of DVT/PE: No History of Uncontrolled Diabetes: No Urinary Catheter: No History of Decub. Ulcer: No History Surgical Site Infection Following: None - Disposition Have Diagnosis and Disposition been Completed?: Yes Diagnosis: Chest pain Disposition: HOSPITALIZED Disposition Time: 22:33 Patient Problems: Current Active Problems Problem Status Onset Chest pain Acute Condition: STABLE
--- NOTE | 2017-09-13 23:55 | CP.PCM.HP ---
<Luis Osullivan - Last Filed: 09/14/17 05:00> History of Present Illness - History of Present Illness History of Present Illness: Luis Osullivan DO - PGY1 IM Acute Care Surgeon - Hospital H&P CC: Chest Pain HPI: 61 F with a PMH of HTN, DM, HLD, Anemia, Hep C (treatment completed approx 1 year ago) presented to [facility] ED on 09/13 w/ a chief complaint of right sided chest pain. Patient reported that the pain was initially constant, however it now waxes and wanes. The pain is located along the R side of her chest, and reports that it radiates into the upper right portion of her back. She reported that she awoke on 09/13 in the AM w/ the pain, and that it is not worsened with activity or exercise. She reports that she took two acetominophen at home, and has helped relieve the pain from 10/05 to 10. She is unable to describe the sensation of the pain, and does not complain of any associated shortness of breath or palpitations. She denies any trauma to the area or strenuous physical activity. She denies any lumps or masses in the R breast/ axilla. She reports she has had an episode of chest pain Nov 2016; however cardiac workup at the time was negative. She denies any history of CA, stroke, or GERD. Upon ROS she denies any headache, blurry vision, shortness of breath, cough palpitations, abd pain, nausea/vomiting/diarrhea/constipation, hematuria, dysuria, new onset swelling/ LE edema, new onset numbness/ tingling, New onset focal weakness/ deficit. Denies any L arm pain, any neck pain, any jaw claudication. Remainder of 12 system ROS was otherwise negative. PMD: Dr. Crump Pharmacy: [facility] PMH: As above PSH: Denies Social Hx: no etoh, tobacco use, illicit drug use, lives at home w/ family independent w/ ADLs Fam Hx: Denies Home Rx: Unable to recall; verify w/ pharmacy In ED: VSS, 1st troponin negative CBC: Normocytic Anemia 11.3 CMP: wnl UA: wnl EKBPM NSR; No ST segment depressions; CXR: wnl; no acute cardio-pulmonary disease Given x1 ASA 325 Present on Admission - Present on Admission Any Indicators Present on Admission: No Review of Systems - Constitutional Constitutional: As Per HPI - EENT Eyes: As Per HPI Ears: As Per HPI Nose/Mouth/Throat: As Per HPI - Breasts Breasts: As Per HPI - Cardiovascular Cardiovascular: As Per HPI - Respiratory Respiratory: As Per HPI - Gastrointestinal Gastrointestinal: As Per HPI - Genitourinary Genitourinary: As Per HPI - Reproductive: Female Reproductive:Female: As Per HPI - Menstruation Menstruation: As Per HPI - Musculoskeletal Musculoskeletal: As Per HPI - Integumentary Integumentary: As Per HPI - Neurological Neurological: As Per HPI - Psychiatric Psychiatric: As Per HPI - Endocrine Endocrine: As Per HPI - Hematologic/Lymphatic Hematologic: As Per HPI Past Patient History - Infectious Disease Hx of Infectious Diseases: None - Past Social History Smoking Status: Never Smoked - CARDIAC Hx Cardiac Disorders: Yes Hx Hypertension: Yes - PULMONARY Hx Respiratory Disorders: No - NEUROLOGICAL Hx Neurological Disorder: No - HEENT Hx HEENT Problems: No - RENAL Hx Chronic Kidney Disease: No - ENDOCRINE/METABOLIC Hx Endocrine Disorders: Yes Hx Diabetes Mellitus Type 2: Yes - HEMATOLOGICAL/ONCOLOGICAL Hx Blood Disorders: Yes Hx Hepatitis C: Yes - INTEGUMENTARY Hx Dermatological Problems: No - MUSCULOSKELETAL/RHEUMATOLOGICAL Hx Musculoskeletal Disorders: No Hx Falls: No - GASTROINTESTINAL Hx Gastrointestinal Disorders: No - GENITOURINARY/GYNECOLOGICAL Hx Genitourinary Disorders: No - PSYCHIATRIC Hx Psychophysiologic Disorder: No Hx Substance Use: No - SURGICAL HISTORY Hx Surgeries: No - ANESTHESIA Hx Anesthesia: No Meds Allergies/Adverse Reactions: Allergies Allergy/AdvReac Type Severity Reaction Status Date / Time No Known Allergies Allergy Verified 09/13/17 19:26 Physical Exam - Constitutional Appears: Well, Non-toxic, No Acute Distress - Head Exam Head Exam: ATRAUMATIC, NORMOCEPHALIC - Eye Exam Eye Exam: EOMI, PERRL. absent: Scleral icterus - ENT Exam ENT Exam: Mucous Membranes Moist - Respiratory Exam Respiratory Exam: Clear to Auscultation Bilateral, NORMAL BREATHING PATTERN. absent: Rhonchi, Wheezes - Cardiovascular Exam Cardiovascular Exam: RRR, +S1, +S2 Additional comments: BREAST EXAM PERFORMED w/ Nurse at bedside No tenderness to palpation of breast BL, and axillae BL. No masses, lumps, or induration palpated. - GI/Abdominal Exam GI & Abdominal Exam: Soft. absent: Tenderness - Extremities Exam Extremities exam: Positive for: pedal pulses present (2+ DP/PT BL). Negative for: tenderness - Back Exam Back exam: absent: CVA tenderness (L), CVA tenderness (R) - Neurological Exam Neurological exam: Alert, CN II-XII Intact - Psychiatric Exam Psychiatric exam: Normal Affect, Normal Mood - Skin Skin Exam: Dry, Intact, Warm Results - Vital Signs Recent Vital Signs: Last Vital Signs Temp 98.0 F 09/13/17 19:28 Pulse 72 09/13/17 23:15 Resp 18 09/13/17 23:15 BP 131/82 09/13/17 23:15 Pulse Ox 100 09/13/17 23:15 - Labs Result Diagrams: 09/13/17 19:28 09/13/17 19:28 Assessment & Plan - Assessment and Plan (Free Text) Assessment: 61F PMH HTN, DM, HLD, HepC (completed treatment approx 1 year ago; no viral load per pt), presents to [facility] ED on 09/12 w/ CC of R sided chest pain. Atypical Chest Pain: ACS r/o Mammogram - 03/2017 - Negative Stress test - 11/2016 - Normal spect; LVEF 65% AM Labs [facility] Remote tele AM EKG ASA 81 QD Atorvastatin 40 QD Cardiology Consulted - Dr. Lee Hx HTN Pt. Normotensive at this time Resume Home Rx as needed Hx HLD AM Fasting Lipid pending Start Atorvastatin as above Hx HepC Pt reports therapy completed ~1 year ago Recheck HCV Hx DM Last A1C per patient 6.4 None on file; will recheck ISS Reg Accucheck QHS; Q6H Carb control diet Hx Anemia Hgb 11.3; Pt on Fe supplement at home VSS/ Hemodynamically stable Continue to monitor for s/s anemia Iron studies/ B12/ Folate ordered Started on Fe PO Resume Home Fe supplement once confirmed w/ pharmacy GI/DVT PPX: Protonix / Lovenox Fall precautions in place Dispo: Admit to med surg w/ remote tele for chest pain workup and r/o ACS. Luis Osullivan DO - PGY1 Internal Medicine Acute Care Surgeon - Date & Time Date: 09/14/17 Time: 05:00 <Mitzi Walters - Last Filed: 09/14/17 06:26> Results - Vital Signs Recent Vital Signs: Last Vital Signs Temp 97.4 F L 09/14/17 00:15 Pulse 65 09/14/17 05:27 Resp 18 09/14/17 00:15 BP 136/55 L 09/14/17 00:15 Pulse Ox 100 09/13/17 23:15 - Labs Result Diagrams: 09/13/17 19:28 09/13/17 19:28 Labs: Laboratory Results - last 24 hr 09/14/17 01:30 Troponin I < 0.01 Attending/Attestation - Attestation I have personally seen and examined this patient.: Yes I have fully participated in the care of the patient.: Yes I have reviewed all pertinent clinical information: Yes
[2017-09-14 02:45] VITALS: BMI 35.3
[2017-09-14] MEDS ORDERED: Pantoprazole 40 mg EC Tab PO SCH (06:00)
[2017-09-14 06:32] LABS: BASO # 0.04 K/mm3 (0.0-2.0); BASO % 0.7 % (0.0-3.0); EOS # 0.1 (0.0-0.7); EOS % 2.3 % (1.5-5.0); GRAN # 1.93 (1.4-6.5); GRAN % 34.3 % (50.0-68.0); LYMPH % 53.4 % (22.0-35.0); MEAN CELL VOLUME 72.9 fl (80.0-105.0); MEAN CORPUSCULAR HEMOGLOBIN 22.8 pg (25.0-35.0); MEAN CORPUSCULAR HGB CONC 31.3 g/dl (31.0-37.0); MEAN PLATELET VOLUME 8.4 fl (7.0-11.0); MONO # 0.5 (0.1-0.6); MONO % 9.3 % (1.0-6.0); RBC 4.83 10^6/uL (3.5-6.1); RED CELL DISTRIBUTION WIDTH 15.4 % (11.5-14.5); WHITE BLOOD COUNT 5.6 10^3/ul (4.5-11.0)
[2017-09-14 07:07] LABS: ALB/GLOB RATIO 1.1 (1.1-1.8); ALBUMIN 3.8 g/dL (3.0-4.8); ALT/SGPT 28 U/L (7-56); AST/SGOT 27 U/L (14-36); BLOOD UREA NITROGEN 18 mg/dL (7-21); CALCIUM 9.4 mg/dL (8.4-10.5); GFR AFRICAN-AMERICAN > 60; GFR NON-AFRICAN AMERICAN > 60; HDL CHOLESTEROL 38 mg/dL (29-60)
[2017-09-14 07:16] LABS: LDL CHOLESTEROL 85 mg/dL (0-129)
[2017-09-14 07:23] LABS: IRON 55 ug/dL (45-180)
[2017-09-14 07:32] LABS: % IRON SATURATION 13 % (20-55); TOTAL IRON BINDING CAPACITY 426 ug/dL (265-497)
[2017-09-14 07:49] VITALS: BP 129/74; PULSE 72; RESP 20; TEMP 97.8; O2SAT 99
[2017-09-14] MEDS: Insulin Reg-MEDIUM-Coverage SC SCH ×2 (08:04→08:39)
--- NOTE | 2017-09-14 08:34 | RAD ---
Date of service: 09/13/2017 HISTORY: chest pain COMPARISON: 12/05/2016 FINDINGS: LUNGS: No active pulmonary disease. PLEURA: No significant pleural effusion identified, no pneumothorax apparent. CARDIOVASCULAR: Normal. OSSEOUS STRUCTURES: No significant abnormalities. VISUALIZED UPPER ABDOMEN: Normal. OTHER FINDINGS: None. IMPRESSION: No active disease.
[2017-09-14] MEDS ORDERED: Enoxaparin 40 mg Syringe SC SCH (10:00)
[2017-09-14] MEDS ORDERED: Iron Complex Polysacch 150mg Cap PO SCH (10:00)
--- NOTE | 2017-09-14 10:20 | CARD ---
APPROVED REPORT Date of service: 09/14/2017 EKG Measurement Heart [id number] CA [id number] <Conclusion> Normal sinus rhythm Normal ECG
--- NOTE | 2017-09-14 11:04 | CARD ---
APPROVED REPORT Date of service: 09/13/2017 EKG Measurement Heart [id number] <Conclusion> Normal sinus rhythm Normal ECG
[2017-09-14 12:09] LABS: FERRITIN 14.5 ng/mL
--- NOTE | 2017-09-14 21:54 | CP.PCM.DIS ---
<April Razo - Last Filed: 09/14/17 21:54> Provider - Provider Date of Admission: 09/13/17 22:31 Attending physician: Verna Maciel MD Primary care physician: Caden Crump MD Consults: Cardiology: Dr. Lee Time Spent in preparation of Discharge (in minutes): 45 Diagnosis - Discharge Diagnosis (1) Chest pain Status: Chronic Priority: Medium Hospital Course - Lab Results Lab Results: Most Recent Lab Values WBC 5.6 10^3/ul (4.5-11.0) 09/14/17 05:45 RBC 4.83 10^6/uL (3.5-6.1) 09/14/17 05:45 Hgb 11.0 g/dL (12.0-16.0) L 09/14/17 05:45 Hct 35.2 % (36.0-48.0) L 09/14/17 05:45 MCV 72.9 fl (80.0-105.0) L 09/14/17 05:45 MCH 22.8 pg (25.0-35.0) L 09/14/17 05:45 MCHC 31.3 g/dl (31.0-37.0) 09/14/17 05:45 RDW 15.4 % (11.5-14.5) H 09/14/17 05:45 Plt Count 303 10^3/uL (120.0-450.0) 09/14/17 05:45 MPV 8.4 fl (7.0-11.0) 09/14/17 05:45 Gran % 34.3 % (50.0-68.0) L 09/14/17 05:45 Lymph % (Auto) 53.4 % (22.0-35.0) H 09/14/17 05:45 [place] % (Auto) 9.3 % (1.0-6.0) H 09/14/17 05:45 Eos % (Auto) 2.3 % (1.5-5.0) 09/14/17 05:45 Baso % (Auto) 0.7 % (0.0-3.0) 09/14/17 05:45 Gran # 1.93 (1.4-6.5) 09/14/17 05:45 Lymph # (Auto) 3.0 (1.2-3.4) 09/14/17 05:45 [place] # (Auto) 0.5 (0.1-0.6) 09/14/17 05:45 Eos # (Auto) 0.1 (0.0-0.7) 09/14/17 05:45 Baso # (Auto) 0.04 K/mm3 (0.0-2.0) 09/14/17 05:45 Retic Count 1.07 % (0.5-1.5) 09/14/17 05:45 PT 11.2 SECONDS (9.4-12.5) 09/13/17 19:28 INR 0.98 (0.93-1.08) 09/13/17 19:28 APTT 29.9 Seconds (25.1-36.5) 09/13/17 19:28 Sodium 142 mmol/L (132-148) 09/14/17 05:45 Potassium 4.0 mmol/L (3.6-5.0) 09/14/17 05:45 Chloride 104 mmol/L (98-107) 09/14/17 05:45 Carbon Dioxide 27 mmol/L (21-33) 09/14/17 05:45 Anion Gap 15 (10-20) 09/14/17 05:45 BUN 18 mg/dL (7-21) 09/14/17 05:45 Creatinine 0.6 mg/dl (0.7-1.2) L 09/14/17 05:45 Est GFR ( Amer) > 60 09/14/17 05:45 Est GFR (Non-Af Amer) > 60 09/14/17 05:45 POC Glucose (mg/dL) 122 mg/dL (65-110) H 09/14/17 07:21 Random Glucose 112 mg/dL (70-110) H 09/14/17 05:45 Hemoglobin A1c 6.3 % (4.2-6.5) 09/14/17 05:45 Calcium 9.4 mg/dL (8.4-10.5) 09/14/17 05:45 Phosphorus 4.3 mg/dL (2.5-4.5) 09/14/17 05:45 Magnesium 1.9 mg/dL (1.7-2.2) 09/14/17 05:45 Iron 55 ug/dL (45-180) 09/14/17 05:45 TIBC 426 ug/dL (265-497) 09/14/17 05:45 % Saturation 13 % (20-55) L 09/14/17 05:45 Ferritin 14.5 ng/mL 09/14/17 05:45 Total Bilirubin 0.4 mg/dL (0.2-1.3) 09/14/17 05:45 AST 27 U/L (14-36) 09/14/17 05:45 ALT 28 U/L (7-56) 09/14/17 05:45 Alkaline Phosphatase 45 U/L (38-126) 09/14/17 05:45 Lactate Dehydrogenase 388 U/L (333-699) 09/13/17 19:28 Total Creatine Kinase 47 U/L (35-230) 09/13/17 19:28 Troponin I < 0.01 ng/mL 09/14/17 05:45 Total Protein 7.3 g/dL (5.8-8.3) 09/14/17 05:45 Albumin 3.8 g/dL (3.0-4.8) 09/14/17 05:45 Globulin 3.5 gm/dL 09/14/17 05:45 Albumin/Globulin Ratio 1.1 (1.1-1.8) 09/14/17 05:45 Triglycerides 131 mg/dL (35-160) 09/14/17 05:45 Cholesterol 155 mg/dL (130-200) 09/14/17 05:45 LDL Cholesterol Direct 85 mg/dL (0-129) 09/14/17 05:45 HDL Cholesterol 38 mg/dL (29-60) 09/14/17 05:45 Vitamin B12 573 pg/mL (239-931) 09/14/17 05:45 Folate 10.0 ng/mL 09/14/17 05:45 TSH 3rd Generation 3.13 mIU/mL (0.46-4.68) 09/14/17 05:45 - Hospital Course Hospital Course: April Razo -- Marketing Communications Manager -- Discharge Summary Hospital Course 61 year old female with a past medical history of hypertension, diabetes, hyperlipidemia, anemia, Hep C status post completion of treatment 1 year ago presented to [facility] Emergency Department with a chief complaint of right sided chest pain. Patient was subsequently admitted to telemetry for ACS rule-out. Patient's medical records and previous imaging were reviewed. Patient's most recent Stress test in 2017 revealed LVEF 65%. Trops were trended and were negative x3. Patient was given aspirin, and cardiology was consulted. On the day of discharge, the patient was in no acute distress, normotensive, and asymptomatic, and denies any chest pain, shortness of breath, headache, blurry vision, cough, palpitations, abdominal pain, nausea, vomiting, diarrhea, lower extremity pain and/or edema. Per cardiology recommendations, the patient is to follow-up in office of said meter and regulator shop supervisor for further evaluation. Patient has agreed, and is discharged to home. Discharge Medications: Aspirin 81mg daily Discharge Exam - Head Exam Head Exam: ATRAUMATIC, NORMOCEPHALIC - Eye Exam Eye Exam: Normal appearance. absent: Scleral icterus - ENT Exam ENT Exam: Mucous Membranes Moist, Normal Exam - Neck Exam Neck exam: Normal Inspection - Respiratory Exam Respiratory Exam: NORMAL BREATHING PATTERN, UNREMARKABLE. absent: Accessory Muscle Use, Wheezes - Cardiovascular Exam Cardiovascular Exam: RRR. absent: Gallop - GI/Abdominal Exam GI & Abdominal Exam: Normal Bowel Sounds, Soft, Unremarkable - Extremities Exam Extremities exam: normal inspection - Back Exam Back exam: NORMAL INSPECTION. absent: tenderness - Neurological Exam Neurological exam: Alert, Normal Gait, Oriented x3 - Psychiatric Exam Psychiatric exam: Normal Affect, Normal Mood - Skin Skin Exam: Dry, Normal Color, Warm Discharge Plan - Follow Up Plan Condition: STABLE Disposition: HOME/ ROUTINE Patient education suggested?: Yes Instructions: Chest Pain (DC) Additional Instructions: - Follow up with primary doctor ( Dr Crump)within 3-5 days - Follow up with meter and regulator shop supervisor ( Dr Lee) within 3-5 days ( call his office to schedule appointment) - Resume home medications as prescribed - Please return to ED if symptoms returns. Referrals: Clarence Lee MD [Staff Provider] - Caden Crump MD [Primary Care Provider] - <Sarah Osullivan Vasile - Last Filed: 09/15/17 13:30> Provider - Provider Date of Admission: 09/13/17 22:31 Attending physician: Verna Maciel MD Primary care physician: Caden Crump MD Hospital Course - Lab Results Lab Results: Most Recent Lab Values WBC 5.6 10^3/ul (4.5-11.0) 09/14/17 05:45 RBC 4.83 10^6/uL (3.5-6.1) 09/14/17 05:45 Hgb 11.0 g/dL (12.0-16.0) L 09/14/17 05:45 Hct 35.2 % (36.0-48.0) L 09/14/17 05:45 MCV 72.9 fl (80.0-105.0) L 09/14/17 05:45 MCH 22.8 pg (25.0-35.0) L 09/14/17 05:45 MCHC 31.3 g/dl (31.0-37.0) 09/14/17 05:45 RDW 15.4 % (11.5-14.5) H 09/14/17 05:45 Plt Count 303 10^3/uL (120.0-450.0) 09/14/17 05:45 MPV 8.4 fl (7.0-11.0) 09/14/17 05:45 Gran % 34.3 % (50.0-68.0) L 09/14/17 05:45 Lymph % (Auto) 53.4 % (22.0-35.0) H 09/14/17 05:45 [place] % (Auto) 9.3 % (1.0-6.0) H 09/14/17 05:45 Eos % (Auto) 2.3 % (1.5-5.0) 09/14/17 05:45 Baso % (Auto) 0.7 % (0.0-3.0) 09/14/17 05:45 Gran # 1.93 (1.4-6.5) 09/14/17 05:45 Lymph # (Auto) 3.0 (1.2-3.4) 09/14/17 05:45 [place] # (Auto) 0.5 (0.1-0.6) 09/14/17 05:45 Eos # (Auto) 0.1 (0.0-0.7) 09/14/17 05:45 Baso # (Auto) 0.04 K/mm3 (0.0-2.0) 09/14/17 05:45 Retic Count 1.07 % (0.5-1.5) 09/14/17 05:45 PT 11.2 SECONDS (9.4-12.5) 09/13/17 19:28 INR 0.98 (0.93-1.08) 09/13/17 19:28 APTT 29.9 Seconds (25.1-36.5) 09/13/17 19:28 Sodium 142 mmol/L (132-148) 09/14/17 05:45 Potassium 4.0 mmol/L (3.6-5.0) 09/14/17 05:45 Chloride 104 mmol/L (98-107) 09/14/17 05:45 Carbon Dioxide 27 mmol/L (21-33) 09/14/17 05:45 Anion Gap 15 (10-20) 09/14/17 05:45 BUN 18 mg/dL (7-21) 09/14/17 05:45 Creatinine 0.6 mg/dl (0.7-1.2) L 09/14/17 05:45 Est GFR ( Amer) > 60 09/14/17 05:45 Est GFR (Non-Af Amer) > 60 09/14/17 05:45 POC Glucose (mg/dL) 122 mg/dL (65-110) H 09/14/17 07:21 Random Glucose 112 mg/dL (70-110) H 09/14/17 05:45 Hemoglobin A1c 6.3 % (4.2-6.5) 09/14/17 05:45 Calcium 9.4 mg/dL (8.4-10.5) 09/14/17 05:45 Phosphorus 4.3 mg/dL (2.5-4.5) 09/14/17 05:45 Magnesium 1.9 mg/dL (1.7-2.2) 09/14/17 05:45 Iron 55 ug/dL (45-180) 09/14/17 05:45 TIBC 426 ug/dL (265-497) 09/14/17 05:45 % Saturation 13 % (20-55) L 09/14/17 05:45 Ferritin 14.5 ng/mL 09/14/17 05:45 Total Bilirubin 0.4 mg/dL (0.2-1.3) 09/14/17 05:45 AST 27 U/L (14-36) 09/14/17 05:45 ALT 28 U/L (7-56) 09/14/17 05:45 Alkaline Phosphatase 45 U/L (38-126) 09/14/17 05:45 Lactate Dehydrogenase 388 U/L (333-699) 09/13/17 19:28 Total Creatine Kinase 47 U/L (35-230) 09/13/17 19:28 Troponin I < 0.01 ng/mL 09/14/17 05:45 Total Protein 7.3 g/dL (5.8-8.3) 09/14/17 05:45 Albumin 3.8 g/dL (3.0-4.8) 09/14/17 05:45 Globulin 3.5 gm/dL 09/14/17 05:45 Albumin/Globulin Ratio 1.1 (1.1-1.8) 09/14/17 05:45 Triglycerides 131 mg/dL (35-160) 09/14/17 05:45 Cholesterol 155 mg/dL (130-200) 09/14/17 05:45 LDL Cholesterol Direct 85 mg/dL (0-129) 09/14/17 05:45 HDL Cholesterol 38 mg/dL (29-60) 09/14/17 05:45 Vitamin B12 573 pg/mL (239-931) 09/14/17 05:45 Folate 10.0 ng/mL 09/14/17 05:45 TSH 3rd Generation 3.13 mIU/mL (0.46-4.68) 09/14/17 05:45 Attending/Attestation - Attestation I have personally seen and examined this patient.: Yes I have fully participated in the care of the patient.: Yes I have reviewed all pertinent clinical information, including history, physical exam and plan: Yes Notes (Text): Patient seen and examined by me with resident at 09:40AM 09/14/17. Case including discharge plan discussed with resident. Agree with above with following additions/corrections Patient is a 61-year-old female past medical history significant for hypertension, type 2 diabetes, anemia, and hepatitis C status post treatment that presented to the emergency room with right-sided chest pain. Please see dictated H&P for further details. Patient admitted with atypical chest pain. Patient placed on telemetry. Troponins within normal limits. Patient placed on aspirin and statin. Cardiology was consulted. Per cardiology, negative stress test on 12/06/2016 with a normal LV function. Patient was cleared for discharge by cardiology. Patient may need cardiac catheterization in the future chest pain returns. 2-D echo on 12/06/2016 per meter and regulator shop supervisor showed EF of 55-60% with normal left ventricular function. Chest pain resolved. Patient no longer had any symptoms. Hemoglobin A1c 6.3. Lipid panel within normal limits. Patient counseled on diet and exercise. Case was discussed with patient's daughter at bedside with patient 's permission. Patient was doing well and cleared for discharge by cardiology. Patient discharged home. On day of discharge, patient was feeling well. Chest pain resolved. She denies nausea, vomiting, or abdominal pain. No headaches or dizziness. No fevers or chills. No dysuria. No shortness of breath. Physical exam: Gen: Awake and alert lying in bed in no acute distress HEENT: Normocephalic atraumatic. Extraocular muscles intact, pupils equal reactive. Oropharynx is pink and moist, no pharyngeal erythema or exudate appreciated. Neck is supple. Cardiovascular: Normal rhythm, normal S1-S2. No murmurs, rubs or gallops appreciated Pulmonary: Normal respiratory effort. No rhonchi, rales or wheezing appreciated. Gastrointestinal: Soft, nondistended, nontender, positive bowel sounds all 4 quadrants, no guarding. Musculoskeletal: Normal range of motion all extremities, no calf tenderness, no CVA tenderness Central nervous system: AAO X 3, cranial nerves II through XII grossly intact, 5 /5 muscle strength all extremities Dermatologic: Skin warm and dry Please see chart for full details. Follow up instructions. Patient follow-up with her primary care doctor within 3- 5 days. Patient to follow-up with meter and regulator shop supervisor Dr. Lee within 3-5 days, patient to call office to schedule an appointment. Patient to continue home medications including aspirin. All instructions explained to the patient and patient's daughter at bedside in detail. Patient and daughter both understand and agree to all instructions. Time spent in discharging the patient including chart review, medication reconciliation, discussion with the patient and patient's daughter at bedside, medical pathology teacher, consultants, and nursing staff was approximately 40 minutes.
--- NOTE | 2017-09-15 03:35 | CON ---
DATE: 09/14/2017 REASON FOR CONSULTATION: Cardiac evaluation for chest pain, atypical. BRIEF CLINICAL HISTORY: This is a 61-year-old female with a past medical history significant for type 2 diabetes, hypertension, obesity, hyperlipidemia, came with a sharp, like pin sensation in the right side of his chest and goes back. The patient admitted here. Denies any dyspnea on exertion or chest pain on exertion now, but states that sometimes she gets chest pain on exertion and then it gets better distance walking. PAST MEDICAL HISTORY: Significant for diabetes, hypertension, hyperlipidemia, obesity. SOCIAL HISTORY: Denies any smoking. Denies any history of alcohol abuse. CURRENT MEDICATIONS: The patient is unable to recall medicine but she has medicine for high blood pressure and medicine for sugar. PREVIOUS CARDIAC WORKUP: As follows, the patient was admitted here on 12/06/2016 and had echo as well as a stress test done. Echocardiography dated 12/06/2016, showed normal LV size, ejection fraction is 55% to 60%, trace mitral regurgitation, trace tricuspid regurgitation, RV systolic pressure of 37. The patient had a stress test done on 12/06/2016 that shows normal myocardial perfusion study, ejection fraction is 65%. REVIEW OF SYSTEMS: As per HPI. PHYSICAL EXAMINATION VITAL SIGNS: Height of the patient is 5 feet, weight of the patient 187 pounds, body mass 35.3 kg/m2. Rest of the examination, temperature afebrile, heart rate 72, blood pressure 129/74. HEENT: PERRLA. Extraocular muscles intact. NECK: Supple. No carotid bruits or thyromegaly. CHEST: Clear to auscultation. HEART: S1 and S2 regular. ABDOMEN: Soft. EXTREMITIES: Clubbing and cyanosis negative. LABORATORY DATA: Blood workup, WBC 5.6, hemoglobin 11, hematocrit 35.2, platelet count 303. Chemistry shows sodium 140, potassium 4, chloride 104, carbon dioxide 27, anion gap of 15, BUN 8, creatinine 0.6. EKG shows normal sinus rhythm with acute ST-T changes noted. Troponin 0.01 x3 negative. IMPRESSION: Atypical chest pain, negative stress test on 12/06/2016, normal LV function. Follow up CPK and troponin. If troponin remains negative, the patient can be discharged. Explained to the patient if the patient recurs chest pain or complaints of dyspnea on exertion, consider cardiac catheterization. Discussed with the resident taking care of the patient. The patient is okay to be discharged, but if the chest pain recurs, please consider cardiac catheterization. Clarence Lee MD
== END 2017-09-14 11:24 | disposition home or self-care (01) ==
LOC: ED 19:08 → ERH 22:31 → 3RNO 23:17
PROVIDERS: ADMIT Internal Medicine; ATTEND Internal Medicine
DX: R07.89 Other chest pain (principal); I10 Essential (primary) hypertension; E11.9 Type 2 diabetes mellitus without complications; E78.5 Hyperlipidemia, unspecified; D64.9 Anemia, unspecified; E66.9 Obesity, unspecified; Z68.35 Body mass index [BMI] 35.0-35.9, adult; Z86.19 Personal history of other infectious and parasitic diseases
CPT/HCPCS: 36415; 71045; 80053; 80061; 82550; 82607; 82728; 82746; 82948; 83036; 83540; 83550; 83615; 83735; 84100; 84443; 84484; 85025; 85027; 85044; 85610; 85730; 87522; 93005; 96372; 99285; G0378; J1650

== ENCOUNTER 2018-01-12 16:14 | Emergency (ER) | payer MEDICAID, OTHER ==
[2018-01-12 16:49] VITALS: TEMP 98.1; BMI 37.0
[2018-01-12 18:03] LABS: BASO # 0.03 K/mm3 (0.0-2.0); BASO % 0.5 % (0.0-3.0); EOS # 0.1 (0.0-0.7); EOS % 2.2 % (1.5-5.0); GRAN # 2.72 (1.4-6.5); GRAN % 45.6 % (50.0-68.0); HEMOGLOBIN 11.9 g/dL (12.0-16.0); LYMPH # 2.6 (1.2-3.4); LYMPH % 43.7 % (22.0-35.0); MEAN CELL VOLUME 73.2 fl (80.0-105.0); MEAN CORPUSCULAR HEMOGLOBIN 22.9 pg (25.0-35.0); MEAN CORPUSCULAR HGB CONC 31.3 g/dl (31.0-37.0); MEAN PLATELET VOLUME 8.4 fl (7.0-11.0); MONO # 0.5 (0.1-0.6); RBC 5.19 10^6/uL (3.5-6.1); RED CELL DISTRIBUTION WIDTH 15.8 % (11.5-14.5)
--- NOTE | 2018-01-12 18:28 | ED PDOC ---
Arrival/HPI - General Chief Complaint: Back Pain - History of Present Illness Narrative History of Present Illness (Text): 62 year old female with past medical history of hypertension, diabetes, and hepatitis C presents to the emergency department complaining of neck pain and shortness of breath x 1 day. Patient states that around 1pm this afternoon she began to have intermittent chest discomfort and shortness of breath. Patient also complaining of neck pain that she states is chronic but worse today. Has not taken any medication for pain. Denies fever, chills, palpitations, diaphoresis, cough, calf swelling, calf pain, headache, weakness, numbness, paresthesias, abdominal pain, nausea, vomiting, diarrhea. Past Medical History - Provider Review Nursing Documentation Reviewed: Yes - Infectious Disease Hx of Infectious Diseases: None - Cardiac Hx Cardiac Disorders: Yes Hx Hypertension: Yes - Pulmonary Hx Respiratory Disorders: No - Neurological Hx Neurological Disorder: No - HEENT Hx HEENT Disorder: No - Renal Hx Renal Disorder: No - Endocrine/Metabolic Hx Endocrine Disorders: Yes Hx Diabetes Mellitus Type 2: Yes - Hematological/Oncological Hx Blood Disorders: Yes Hx Hepatitis C: Yes - Integumentary Hx Dermatological Disorder: No - Musculoskeletal/Rheumatological Hx Musculoskeletal Disorders: Yes Hx Back Pain: Yes Hx Falls: No - Gastrointestinal Hx Gastrointestinal Disorders: No - Genitourinary/Gynecological Hx Genitourinary Disorders: No - Psychiatric Hx Psychophysiologic Disorder: No Hx Substance Use: No - Past Surgical History Past Surgical History: No Previous - Anesthesia Hx Anesthesia: No - Suicidal Assessment Feels Threatened In Home Enviroment: No Family/Social History - Physician Review Nursing Documentation Reviewed: Yes Family/Social History: No Known Family HX Smoking Status: Never Smoked Hx Alcohol Use: No Hx Substance Use: No Allergies/Home Meds Allergies/Adverse Reactions: Allergies No Known Allergies Allergy (Verified 01/12/18 16:37) Review of Systems - Physician Review All systems were reviewed & negative as marked: Yes - Review of Systems Constitutional: Normal Eyes: Normal. absent: Vision Changes ENT: Normal. absent: Sinus Congestion Respiratory: SOB. absent: Cough Cardiovascular: Chest Pain. absent: Palpitations, Edema, Calf Pain, FAN, Orthopnea, Syncope Gastrointestinal: Normal. absent: Abdominal Pain, Nausea, Vomiting Genitourinary Female: Normal. absent: Dysuria, Frequency Musculoskeletal: Neck Pain. absent: Back Pain Skin: Normal. absent: Rash Neurological: Normal. absent: Headache, Dizziness, Focal Weakness, Gait Change s, Disequilibrium Endocrine: Normal Hemo/Lymphatic: Normal. absent: Adenopathy Psychiatric: Normal. absent: Anxiety, Depression Physical Exam Vital Signs Reviewed: Yes Vital Signs Temp Pulse Resp BP Pulse Ox 01/12/18 16:37 98.1 F 70 17 122/72 99 Temperature: Afebrile Blood Pressure: Normal Pulse: Regular Respiratory Rate: Normal Appearance: Positive for: Well-Appearing, Non-Toxic, Comfortable, Other (Does not appear short of breath) Pain Distress: None Mental Status: Positive for: Alert and Oriented X 3 - Systems Exam Head: Present: Atraumatic, Normocephalic Pupils: Present: PERRL Extroacular Muscles: Present: EOMI Conjunctiva: Present: Normal Ears: Present: Normal Mouth: Present: Moist Mucous Membranes Pharnyx: Present: Normal Nose (External): Present: Atraumatic Neck: Present: Paraspinal Tenderness (bilateral), Trachea Midline. No: Normal Range of Motion (decreased flexion secondary to pain), Meningeal Signs, MIDLINE TENDERNESS, Lymphadenopathy Respiratory/Chest: Present: Clear to Auscultation, Good Air Exchange, Other (speaking in full sentences). No: Respiratory Distress, Accessory Muscle Use, Wheezes, Decreased Breath Sounds, Rales, Retracting, Rhonchi, Tachypneic Cardiovascular: Present: Regular Rate and Rhythm, Normal S1, S2, Peripheal Pulses Present. No: Murmurs Abdomen: Present: Normal Bowel Sounds. No: Tenderness, Distention, Peritoneal Signs Back: Present: Normal Inspection Upper Extremity: Present: Normal Inspection, Normal ROM, NORMAL PULSES, Capillary Refill < 2s Lower Extremity: Present: Normal Inspection, Edema (bilateral lower leg edema), NORMAL PULSES, Normal ROM, Neurovascularly Intact, Capillary Refill < 2 s. No: CALF TENDERNESS, Erythema Neurological: Present: GCS=15, CN II-XII Intact, Speech Normal, Motor Func Grossly Intact, Normal Sensory Function, Normal Cerebellar Funct, Gait Normal, Memory Normal Skin: Present: Warm, Dry, Normal Color. No: Rashes Lymphatic: No: Cervical Adenopathy Psychiatric: Present: Alert, Oriented x 3, Normal Insight, Normal Concentration, Anxious Medical Decision Making ED Course and Treatment: Initial Plan: * EKG * CXR * Cervical Spine XR * Cardiac Iso * CBC, CMP * BNP * ASA On initial exam, patient does not appear short of breath. Pt is speaking in full sentences and not in respiratory distress. 01/12/18 18:27 Patient feeling much better on re-eval. Exam unchanged. Patient continues to be in no distress and is able to speak in full sentences. Breathing is unlabored. Patient resting comfortably in stretcher. Cardiac Iso: wnl CBC: wnl CMP: wnl BNP 68.8 EKG: rate 70; NSR; Normal intervals; no ST elevations, T wave inversions, or other signs of ischemia CXR: no active disease Would like to admit patient overnight for observation despite normal workup. After discussing admission with patient, she is asking to leave the hospital because he symptoms have resolved. Will have patient sign out AMA. Patient understands the benefits of staying in the hospital, including observation and further evaluation of clinical symptoms. Patient understands the risks of leaving AMA, to include but are not limited to , disability, and worsening of symptoms. Patient understands that they are encouraged to come back if she desires re-evaluation or experiences new/worsening symptoms. Strict instructions given on the importance of followup and signs to return to the ED. AMA form signed by patient and I, witnessed by nurse Mcguire. - Lab Interpretations Lab Results: 01/12/18 17:57 Lab Results 01/12/18 17:57: WBC 6.0, RBC 5.19, Hgb 11.9 L, Hct 38.0, MCV 73.2 L, MCH 22.9 L, MCHC 31.3, RDW 15.8 H, Plt Count 346, MPV 8.4, Gran % 45.6 L, Lymph % (Auto) 43.7 H, Price % (Auto) 8.0 H, Eos % (Auto) 2.2, Baso % (Auto) 0.5, Gran # 2.72, Lymph # (Auto) 2.6, Price # (Auto) 0.5, Eos # (Auto) 0.1, Baso # (Auto) 0.03 - RAD Interpretation Radiology Orders: 01/12/18 17:15 CHEST TWO VIEWS (PA/LAT) [RAD] Stat 01/12/18 17:17 CERVICAL SPINE AP & LATERAL [RAD] Stat - Medication Orders Current Medication Orders: Discontinued Medications Aspirin (Aspirin) 325 mg PO STAT STA Stop: 01/12/18 17:28 Disposition/Present on Arrival - Present on Arrival Any Indicators Present on Arrival: No History of DVT/PE: No History of Uncontrolled Diabetes: No Urinary Catheter: No History of Decub. Ulcer: No History Surgical Site Infection Following: None - Disposition Have Diagnosis and Disposition been Completed?: Yes Diagnosis: Shortness of breath, Neck pain Disposition: AGAINST MEDICAL ADVICE Disposition Time: 19:00 Condition: STABLE Discharge Instructions (ExitCare): Neck Pain, Shortness of Breath (Dyspnea) (DC), Leaving Against Medical Advice Additional Instructions: Followup with primary doctor within 2 days Ibuprofen/tylenol for neck pain Followup with orthopedic within 2 days Return to ER if you wish to be re-evaluated Referrals: Adam Francois MD [Staff Provider] - Follow up with primary Caden Crump MD [Primary Care Provider] - Follow up with primary Forms: [facility] ([place])
[2018-01-12 18:53] VITALS: RESP 18; O2SAT 100
--- NOTE | 2018-01-12 18:53 | RAD ---
HISTORY: SOB COMPARISON: Chest x-ray performed 09/13/17 TECHNIQUE: Chest PA and lateral FINDINGS: LUNGS: No focal consolidation. Please note that chest x-ray has limited sensitivity for the detection of pulmonary masses. PLEURA: No significant pleural effusion identified. No definite pneumothorax . CARDIOVASCULAR: Borderline cardiomegaly. Ectatic aorta. Atherosclerotic calcification present. OSSEOUS STRUCTURES: No acute osseous abnormality identified. VISUALIZED UPPER ABDOMEN: Unremarkable. OTHER FINDINGS: None. IMPRESSION: Borderline cardiomegaly.
--- NOTE | 2018-01-12 18:55 | RAD ---
Date of service: 01/12/2018 PROCEDURE: Cervical Spine Radiographs. HISTORY: Pain. COMPARISON: None available. FINDINGS: BONES: The dens tip is not adequately visualized. Remainder the visualized osseous structures appear grossly unremarkable without acute displaced fracture identified. Mild degenerative changes with small osteophyte formation. Alignment maintained. DISC SPACES: Unremarkable. SOFT TISSUES: Unremarkable. No prevertebral soft tissue swelling. OTHER FINDINGS: None. IMPRESSION: The dens tip is not adequately visualized. Mild degenerative changes. Correlate clinically. Recommend cross-sectional imaging for further evaluation if indicated.
[2018-01-12 19:03] LABS: ALB/GLOB RATIO 1.1 (1.1-1.8); ALBUMIN 4.1 g/dL (3.0-4.8); ALT/SGPT 24 U/L (7-56); AST/SGOT 27 U/L (14-36); BLOOD UREA NITROGEN 16 mg/dL (7-21); CALCIUM 9.7 mg/dL (8.4-10.5); GFR NON-AFRICAN AMERICAN > 60
[2018-01-12 19:12] LABS: B-TYPE NATRIURETIC PEPTIDE 68.8 pg/mL (0-450); TROPONIN I < 0.01 ng/mL
[2018-01-12 20:02] VITALS: BP 119/76; PULSE 78
--- NOTE | 2018-01-13 09:09 | CARD ---
APPROVED REPORT Date of service: 01/12/2018 EKG Measurement Heart [id number] <Conclusion> Normal sinus rhythm Normal Electrocardiogram
== END 2018-01-12 20:26 | disposition left against medical advice (07) ==
LOC: ED 16:14
DX: R06.02 Shortness of breath (principal); M54.2 Cervicalgia; I10 Essential (primary) hypertension; E11.9 Type 2 diabetes mellitus without complications